=== PATIENT | male | born 1990 | race Caucasian/White ===

== ENCOUNTER 2019-04-21 20:37 | Emergency (ER) | payer MEDICAID ==
[~2019-04-21] VITALS: Ht 165.1 cm; Wt 67.5 kg
[~2019-04-21 20:37] MED LIST: CLIN300C10 PO; HYDR-4011 PO; IBUP-1542 PO; ONDA4TAB14 PO
[2019-04-21 20:46] VITALS: Ht 165.1 cm; Wt 67.5 kg
[2019-04-21] MEDS ORDERED: BACITRACIN/POLYMYXIN 28.35 GM OINT TOP ONE (22:30)
[2019-04-21] MEDS ORDERED: DIPHTH/TET/ACEL PERTUSS (ADULT) 0.5 ML VIAL IM* ONE (22:30)
[2019-04-22] MEDS ORDERED: HYDROCODONE/APAP (5/325) TAB PO ONE (00:30)
[2019-04-22 00:41] VITALS: BP 132/95; PULSE 100; RESP 20
== END 2019-04-22 00:44 | disposition home or self-care (01) ==
LOC: E/R 20:37
DX: S05.11XA Contusion of eyeball and orbital tissues, right eye, initial encounter (principal); S09.90XA Unspecified injury of head, initial encounter; Q28.2 Arteriovenous malformation of cerebral vessels; H02.843 Edema of right eye, unspecified eyelid; W01.0XXA Fall on same level from slipping, tripping and stumbling without subsequent striking against object, initial encounter; Y92.9 Unspecified place or not applicable
CPT/HCPCS: 70450; 70486; 90715; Z7502; Z7610; 99283

== ENCOUNTER 2019-04-25 10:02 | Emergency (ER) | payer MEDICAID ==
[~2019-04-25] VITALS: Wt 78.0 kg
[2019-04-25 10:05] VITALS: BP 146/84; PULSE 78; RESP 18
== END 2019-04-25 12:46 | disposition home or self-care (01) ==
LOC: FTE 10:02
DX: S00.11XA Contusion of right eyelid and periocular area, initial encounter (principal); F17.210 Nicotine dependence, cigarettes, uncomplicated; W19.XXXA Unspecified fall, initial encounter; Y92.9 Unspecified place or not applicable
CPT/HCPCS: 70486; Z7502